=== PATIENT | female | born 1990 | race Caucasian/White ===

== ENCOUNTER 2022-08-08 09:56 | Outpatient (CLI) | payer OTHER | END 2022-08-08 14:20 | disposition home or self-care (01) | LOC: NST 09:56 | PROVIDERS: ATTEND Obstetrics & Gynecology Gynecology | DX: Z34.83 Encounter for supervision of other normal pregnancy, third trimester (principal) ==

== ENCOUNTER 2022-08-15 09:12 | Outpatient (CLI) | payer OTHER | END 2022-08-15 10:02 | disposition home or self-care (01) | LOC: NST 09:12 | PROVIDERS: ATTEND Obstetrics & Gynecology Gynecology | DX: Z34.83 Encounter for supervision of other normal pregnancy, third trimester (principal) ==

== ENCOUNTER 2022-09-06 14:37 | Outpatient (CLI) | payer OTHER | END 2022-09-06 15:25 | disposition home or self-care (01) | LOC: NST 14:37 | PROVIDERS: ATTEND Obstetrics & Gynecology Gynecology | DX: Z34.83 Encounter for supervision of other normal pregnancy, third trimester (principal) ==

== ENCOUNTER 2022-09-16 13:10 | Inpatient (IN) | payer OTHER ==
[~2022-09-16] VITALS: Ht 162.6 cm; Wt 1.8 kg
[2022-09-16] MEDS ORDERED: METFORMIN HCL500 M3 PO (13:59)
== END 2022-09-18 15:15 | disposition home or self-care (01) | DRG 787 ==
LOC: LDR 13:10 → OB/GYN 13:10
PROVIDERS: ADMIT Obstetrics & Gynecology Gynecology; ATTEND Obstetrics & Gynecology Gynecology
PROC: 4A1HXCZ Monitoring of Products of Conception, Cardiac Rate, External Approach (ICD-10-PCS; 2022-09-16)
PROC: 10D00Z1 Extraction of Products of Conception, Low, Open Approach (ICD-10-PCS; principal; 2022-09-16 17:15)
DX: O36.5930 Maternal care for other known or suspected poor fetal growth, third trimester, not applicable or unspecified (principal); O41.03X0 Oligohydramnios, third trimester, not applicable or unspecified; O24.425 Gestational diabetes mellitus in childbirth, controlled by oral hypoglycemic drugs; Z3A.37 37 weeks gestation of pregnancy; Z37.0 Single live birth; Z20.822 Contact with and (suspected) exposure to COVID-19